=== PATIENT | female | born 1965 | race Caucasian/White ===

== ENCOUNTER → 2017-05-09 | Outpatient (CLI) | payer BC | LOC: RAD 10:01 | DX: Z12.31 Encounter for screening mammogram for malignant neoplasm of breast (principal) ==

== ENCOUNTER → 2020-10-07 | Outpatient (CLI) | payer OTHER | LOC: MRI 10:13 | PROVIDERS: ATTEND Family Medicine | DX: M47.26 Other spondylosis with radiculopathy, lumbar region (principal) ==

== ENCOUNTER → 2020-11-08 | Outpatient (CLI) | payer OTHER ==
[~2020-11-08] VITALS: Ht 154.9 cm; Wt 49.9 kg
[~2020-11-08] MED LIST: ALLEGRA ALLERG180 MG PO; NABUMETONE 500500 M2 PO; NEURONTIN300 MG PO; PREDNISONE 5 MG5 M1 PO; TIZANIDINE HCL4 M1 PO; UNICOMPLEX M TA1 TA1 PO; VITAMIN C100 MG PO; VITAMIN D3 COM1 EACH PO
--- NOTE | ~2020-11-08 | HPC ---
[facility] [address] [place] [address] PAIN MANAGEMENT CONSULTATION Name: KENNEY FAIRCHILD Room #: REG NERY Johnston.#: [id number] Admission: 11/08/20 Attend Phys: Kev Pratt DO Discharge: Date of : 61 Report #: [id number] THIS REPORT FOR: cc: Bentley Barcenas MD, Neal A. MD Johnson, James E. DO ~ DATE OF SERVICE: 11/08/2020 REFERRING PHYSICIAN: Bentley Barcenas MD CHIEF COMPLAINT: Low back pain, left lower extremity pain with paresthesias. HISTORY OF PRESENT ILLNESS: As you know, the patient is a 55-year-old female who reports acute onset of low back pain, left lower extremity pain and paresthesias that presented on 09/19/2020. The patient states that her pain began spontaneously. No known injury or trauma. She began to experience symptoms that started in the low back, then began radiating down the left leg. 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 She sought initially treatment with [id number] medications, rest and relaxation, but this did not improve symptoms. She discussed her case further with her primary care physician, Dr. Bentley Barcenas, who trialed conservative treatment initially. When she did not show improvement, she was sent for MRI. MRI showed only mild changes, no specific etiology that would lead to symptoms. The fact that she was not improving with conservative treatment, she was sent to our clinic to discuss options for treatment. The patient indicates pain today is continuous. She describes pain as sharp. She places current pain score 5/10, daily average of 5/10, worst pain has been is 10/10. The patient states her pain is worsened with heat and activity, improves with ice packs. She has been referred to our service to discuss treatment options for suspected lumbar radiculopathy. PAST MEDICAL HISTORY: 1. Seasonal allergies. 2. Chronic elbow pain. 3. History of sensorineural hearing loss. 4. Chronic shoulder pain. PAST SURGICAL HISTORY: LASIK. SOCIAL HISTORY: The patient smokes 1 pack tobacco per day, has done so for 39 years. Denies IV or illicit drug use. Denies any chronic alcohol use. She is working as a senior data warehouse architect. She is not receiving workmen's compensation nor is trying to obtain discrete benefits. She is not in any litigation in regards to her pain. She is unaccompanied at today's visit. [address] [address] PAIN MANAGEMENT CONSULTATION Name: KENNEY FAIRCHILD Room #: REG NERY Sosa#: [id number] Admission: 11/08/20 Attend Phys: Kev Pratt DO Discharge: Date of : 61 Report #: [id number] REVIEW OF SYSTEMS: Positive for night sweats, wearing corrective eyewear, hearing loss with tinnitus, nocturia, numbness and tingling sensations involving the left lower extremity. All other review of systems negative per 12-point review of systems other than those listed in history of present illness. Pain impact score 14/70 indicating mild interference of daily activities secondary to pain. ALLERGIES: PENICILLIN, ASPIRIN. CURRENT MEDICATIONS: Nabumetone 500 mg twice a day, multivitamin 1 tab per day, Billie 180 mg once a day, ascorbic acid 100 mg once a day. IMAGING: MRI lumbar spine obtained 10/07/2020 shows T12-L1 unremarkable, L1-L2 unremarkable, L2-L3 unremarkable. L3-L4 shows mild broad-based posterior disk bulge with superimposed shallow left neural foraminal disk protrusion. There is no mass effect upon the exiting nerve root. No significant central canal stenosis, no neural foraminal stenosis. L4-L5 shows no disk bulge, no central canal stenosis, no neural foraminal stenosis. There is [id number] arthritic changes of the facet joints. L5-S1 is unremarkable. PHYSICAL EXAMINATION: VITAL SIGNS: Blood pressure 110/75, pulse 87, respiratory rate 14 and unlabored. The patient is 100% on room air. Height 5 feet 1 inch tall, weight 110 pounds, BMI calculated 20.8. GENERAL: Well-developed, well-nourished, well-hydrated 55-year-old female appearing her stated age. She is in no acute distress, awake, alert and oriented x 3. Current pain score 5/10. HEENT: Normocephalic, atraumatic. Pupils are round. Extraocular muscles are intact. The patient is wearing a facemask in compliance with COVID-19 regulations. LUNGS: Clear, no wheeze, rhonchi or rales. CARDIOVASCULAR: Regular. No appreciable gallop, no rub. ABDOMEN: Soft, nontender. EXTREMITIES: Show no clubbing, no cyanosis. No appreciable edema. MUSCULOSKELETAL: Seated straight leg raising negative. Supine straight leg raising negative. Cristopher's test is negative. Modified Gaenslen's positive for axial low back pain. Ankle clonus negative. Babinski is negative. Muscle bulk equal and symmetrical in lower extremities. Gait is mildly antalgic favoring left lower extremity over right. There is no noted sensory changes from L1 through S2 dermatomes. Lumbar provocation testing is met with slight increase in axial back pain on the left. ASSESSMENT: 1. Chronic low back pain. [facility] [address] [place] [address] PAIN MANAGEMENT CONSULTATION Name: KENNEY FAIRCHILD Room #: REG [facility] [id number] Admission: 11/08/20 Attend Phys: Kev Pratt DO Discharge: Date of : 61 Report #: [id number] 2. Left lower extremity pain with paresthesias. 3. Possible lumbar radiculopathy. 4. Displacement of lumbar intervertebral disk with radiculopathy. 5. Facet arthropathy of the lumbar spine. PLAN: 1. Based on today's physical exam and the history the patient has provided and the distribution of symptoms the patient is experiencing pain upon as well as the descriptors she uses in regards to pain including numbness and tingling with radiation down the left leg, the likely source of the patient's pain is lumbar radiculopathy. I am pleased to advise the patient of the findings of her MRI show minimal changes at the L2-L3 level that may be the source of her symptoms. She does not have any significant central canal or neural foraminal stenosis at the L4-L5 and L5-S1 level, nor at the L1-L2 or L2-L3 level. We discussed with the patient those findings of the MRI. We also discussed the mild changes at the L3-L4 level and suggested treatment options were as follows: We discussed physical therapy, stretching exercises and core strengthening. We discussed medication management with suggestions of treatment to utilize nonsteroidal anti-inflammatories and a consistent neuropathic medication such as amitriptyline, nortriptyline, Cymbalta, Lyrica or gabapentin. We discussed epidural injections for which the patient was referred to our clinic. We also discussed surgical options though given the mild findings, no surgical options would be recommended. After reviewing the risks and benefits of all proposed treatment options, the patient chose to begin with addressing treatment with lumbar radiculopathy. 2. Due to third democrat payer restrictions, authorization would have to be obtained before the patient could undergo a lumbar epidural injection. We will begin this authorization process immediately. This could take anywhere from 4-7 working days. We will begin that process starting today and have the patient follow up once this has been completed. We are hopeful we can obtain this authorization quickly and have the patient return to undergo the epidural injection requested. 3. No medication changes made at today's visit. We recommend the patient to continue current medical therapy as prior prescribed. 4. We will see the patient back in followup visit once authorization has been obtained to undergo lumbar epidural injection. We will see whether or not her symptoms will improve with such a procedure. We may be offering suggestions for treatment to address neuropathic pain with medications if the epidural injection is not fully effective. 5. We wish to thank Dr. Bentley Barcenas for the opportunity to see this patient in consultation. We will keep you apprised of her response to treatment as we [address] [address] PAIN MANAGEMENT CONSULTATION Name: KENNEY FAIRCHILD Room #: REG NERY Sosa#: [id number] Admission: 11/08/20 Attend Phys: Kev Pratt DO Discharge: Date of : 61 Report #: [id number] address suspected lumbar radiculopathy. Again, we wish to thank you for the opportunity to see the patient in consultation. By: [id number] Kev Pratt DO /nt
[2020-11-08 09:15] VITALS: BP 110/75
--- NOTE | 2020-11-08 10:12 | NUR ---
Pain Clinic Assessment: 1. History of Osteoarthritis: KNEES History of Rheumatoid Arthritis: Not Applicable 2. Height: 5 ft. 1 in. 154.9 cm. Weight: 110.0 lb. oz. 49.896 kg. Patient's BMI: 20.8 3. Vital Signs: BP: 110/75 Pulse: 87 Resp: 14 Temp: 02 Sat: 100 ECG Mon: 4. Pain Intensity: 5 5. Fall Risk: Dizziness: N Needs help standing or walking: N Fallen in the last 3 months: N Fall risk comments: 6. Patient on Blood Thinner: None 7. History of Hypertension: N 8. Opioid Therapy greater than 6 weeks: N Opiate Contract Signed: 9. Risk Assessment Tool Provided: LOW 10. Functional Assessment Tool: 11. Recreational Drug Use: Never Drug Type: Tobacco Use: Current Every Day Smoker Tobacco Type: Cigarettes Amount or Packs/day: 1 How Many Years: 39 Alcohol Use: No Frequency: Quant:
== END ==
LOC: PAIN 06:46
PROVIDERS: ATTEND Anesthesiology Pain Medicine
DX: M51.16 Intervertebral disc disorders with radiculopathy, lumbar region (principal); G89.29 Other chronic pain; Z79.891 Long term (current) use of opiate analgesic